=== PATIENT | female | born 1945 | race African-American/Black ===

== ENCOUNTER 2017-04-28 14:19 | Outpatient (CLI) | payer MEDICARE | END 2017-04-28 14:20 | disposition critical access hospital (66) | LOC: EMS 14:19 | PROVIDERS: ATTEND Surgery | DX: R55 Syncope and collapse (principal) | CPT/HCPCS: A0425; A0427 ==

== ENCOUNTER 2017-06-04 14:58 | Outpatient (CLI) | payer MEDICARE, OTHER ==
--- NOTE | 2017-06-05 14:58 | Ultrasound Report ---
EXAM: RENAL ULTRASOUND EXAM DATE: 06/04/2017 05:04 PM. CLINICAL HISTORY: LUPUS KIDNEY. RIGHT NEPHRECTOMY, apparently due to infection, not cancer, according to the patient. COMPARISON: None. TECHNIQUE: Real-time scanning was performed with static images obtained. FINDINGS: Right Kidney: Surgically absent. Left Kidney: 11 x 5.8 x 5.5 cm. Mildly echogenic kidney is nonspecific. No stones, contour-deforming masses, or hydronephrosis. There is a benign-appearing simple cyst at the upper pole measuring 1.4 x 1.3 x 1.7 cm. Bladder: Small left ureteral jet is seen. The prevoid bladder volume was 88 cc. The postvoid bladder volume was 8 cc. (Please note that the patient voided twice prior to this exam due to delay from othe r emergent exams performed before her study.) Other: None. Impression: 1. Mildly echogenic left kidney is nonspecific. This can be seen with chronic renal disease including lupus. No suspicious left renal masses are seen. 2. Status post right nephrectomy. [facility] Referring Provider Line: [phone] SITE ID: [id number]
== END 2017-06-04 14:59 | disposition home or self-care (01) ==
LOC: DI 14:58
PROVIDERS: ATTEND Internal Medicine Nephrology
DX: M32.9 Systemic lupus erythematosus, unspecified (principal); Z90.5 Acquired absence of kidney
CPT/HCPCS: 76770

== ENCOUNTER 2017-07-12 08:00 | Outpatient (CLI) | payer MEDICARE, OTHER ==
[2017-07-12 19:21] LABS: CALCIUM 9.2 mg/dL (8.5-10.3); CREATININE 1.1 mg/dL (0.4-1.0); PHOSPHORUS 4.1 mg/dL (2.5-4.6)
== END 2017-07-12 08:01 | disposition home or self-care (01) ==
LOC: LAB.WCP 08:00
PROVIDERS: ATTEND Internal Medicine Nephrology
DX: N05.9 Unspecified nephritic syndrome with unspecified morphologic changes (principal); E83.30 Disorder of phosphorus metabolism, unspecified; N25.81 Secondary hyperparathyroidism of renal origin
CPT/HCPCS: 36415; 80048; 83970; 84100

== ENCOUNTER 2017-11-14 09:33 | Outpatient (CLI) | payer MEDICARE, OTHER ==
[2017-11-14 12:43] LABS: BASOPHILS % (AUTO) 0.8 %; EOSINOPHILS # (AUTO) 0.1 10^3/uL (0.0-0.7); EOSINOPHILS % (AUTO) 1.9 %; HGB - HEMOGLOBIN 12.4 g/dL (12.0-16.0); LYMPHOCYTES # (AUTO) 1.1 10^3/uL (1.5-3.5); LYMPHOCYTES % (AUTO) 33.6 %; MEAN CORPUSCULAR HEMOGLOBIN 29.2 pg (27.0-31.0); MEAN CORPUSCULAR HGB CONC 33.5 g/dL (32.0-36.0); MEAN CORPUSCULAR VOLUME 87.2 fL (81.0-99.0); MEAN PLATELET VOLUME 10.8 fL (7.9-10.8); MONOCYTES # (AUTO) 0.4 10^3/uL (0.0-1.0); MONOCYTES % (AUTO) 11.5 %; NEUTROPHILS # (AUTO) 1.7 10^3/uL (1.5-6.6); NEUTROPHILS % (AUTO) 52.2 %; PLT - PLATELET COUNT 118 10^3/uL (130-450); RED BLOOD COUNT 4.24 10^6/uL (4.20-5.40); WHITE BLOOD COUNT 3.3 x10^3/uL (4.8-10.8)
[2017-11-14 12:57] LABS: ALBUMIN 3.8 g/dL (3.2-5.5); ALBUMIN/GLOBULIN RATIO 1.1 (1.0-2.2); ALKALINE PHOSPHATASE 72 IU/L (42-121); ALT ALANINE AMINOTRANSFERASE 25 IU/L (10-60); AST ASPARTATE AMINOTRANSFERASE 31 IU/L (10-42); BILIRUBIN,TOTAL 0.8 mg/dL (0.2-1.0); BUN - BLOOD UREA NITROGEN 13 mg/dL (6-20); CALCIUM 9.2 mg/dL (8.5-10.3); CARBON DIOXIDE - CO2 28 mmol/L (21-32); CHLORIDE 105 mmol/L (101-111); CREATININE 0.8 mg/dL (0.4-1.0); GFR - MDRD 85 (>89); GLUCOSE 79 mg/dL (70-100); SODIUM 140 mmol/L (135-145); TOTAL PROTEIN 7.4 g/dL (6.7-8.2)
== END 2017-11-14 09:34 | disposition home or self-care (01) ==
LOC: LAB.WCP 09:33
PROVIDERS: ATTEND Family Medicine
DX: N18.3 Chronic kidney disease, stage 3 (moderate) (principal); I10 Essential (primary) hypertension; D68.59 Other primary thrombophilia; M19.93 Secondary osteoarthritis, unspecified site
CPT/HCPCS: 36415; 80053; 84443; 85025

== ENCOUNTER 2017-12-12 10:34 | Outpatient (CLI) | payer MEDICARE, OTHER ==
[2017-12-12 13:52] LABS: CREATININE,URINE 133.3 mg/dL; PROTEIN/CREATININE RATIO,URINE 0.1 (<=0.2)
== END 2017-12-12 10:35 | disposition home or self-care (01) ==
LOC: LAB.WCP 10:34
PROVIDERS: ATTEND Family Medicine
DX: I12.9 Hypertensive chronic kidney disease with stage 1 through stage 4 chronic kidney disease, or unspecified chronic kidney disease (principal); N18.3 Chronic kidney disease, stage 3 (moderate)
CPT/HCPCS: 36415; 82570; 84156; 85651

== ENCOUNTER 2017-12-21 13:53 | Outpatient (CLI) | payer MEDICARE, OTHER ==
--- NOTE | 2017-12-30 14:10 | Mammography Report ---
Procedure Date: 12/21/2017 Accession Number: [id number] / [id number] Procedure: ROSY - Screening Mammo Dig Bilat CPT Code: FULL RESULT: EXAM: Screening Mammo Dig Bilat DATE: 12/21/2017 2:11 PM CLINICAL HISTORY: 72-year-old for screening TECHNIQUE: Bilateral CC and MLO views were obtained. COMPARISON: The patient reports having had previous mammograms in [place], but films currently cannot be located. If records in your office indicate where the examination was performed, would be happy to try to obtain it for direct comparison. Otherwise, this will serve as a new baseline. FINDINGS: The breasts demonstrate scattered fibroglandular densities bilaterally. Punctate, typically benign calcifications are present. No suspicious masses, clustered microcalcifications, or regions of architectural distortion are identified. IMPRESSION: Benign findings RECOMMENDATION: Routine annual screening unless otherwise clinically indicated. BIRADS CATEGORY 2: Benign findings STANDARD QUALIFYING STATEMENTS: 1. This examination was reviewed with the aid of Computer-Aided Detection (CAD). 2. A negative or benign imaging report should not delay biopsy if clinically suspicious findings are present. Consider surgical consultation if warrented. More than 5% of cancers are not identified by imaging. 3. Dense breasts may obscure an underlying neoplasm.
== END 2017-12-21 13:54 | disposition home or self-care (01) ==
LOC: DI 13:53
PROVIDERS: ATTEND Family Medicine
DX: Z12.31 Encounter for screening mammogram for malignant neoplasm of breast (principal)
CPT/HCPCS: 77067

== ENCOUNTER 2018-03-10 09:53 | Outpatient (CLI) | payer MEDICARE, OTHER ==
--- NOTE | 2018-03-10 14:11 | Ultrasound Report ---
Reason: POSTMENOPAUSAL BLEEDING Procedure Date: 03/10/2018 Accession Number: [id number] / [id number] Procedure: US - Pelvic w/Transvaginal CPT Code: FULL RESULT: EXAM: PELVIC ULTRASOUND EXAM DATE: 03/10/2018 12:15 PM. CLINICAL HISTORY: POSTMENOPAUSAL BLEEDING. COMPARISON: None. TECHNIQUE: Realtime transabdominal pelvic scan performed to identify the uterus and adnexa and as an overview of other pelvic structures, followed by transvaginal scan to provide greater detail of the uterus and adnexa, with static image documentation. FINDINGS: Uterus: 8.5 x 5.4 x 3.9 cm, volume 94 cc. Anteverted position. Heterogeneous echotexture with multiple calcifications. Masses: Multiple fibroids largest posterior left intramural 1.8 x 2 x 1.3 cm and pedunculated from the anterior aspect of the cervix 1.7 x 2.1 x 1.7 cm.. Endometrium: 3 mm. Suboptimal evaluation due to the fibroids. Cervix: Unremarkable. Right and left Ovary: Not seen. No adnexal masses. Free Fluid: None. Other: Incidental note made of multiple bladder diverticula. IMPRESSION: Myomatous changes of the uterus without suspicious findings. Multiple urinary bladder diverticula. [facility]
== END 2018-03-10 09:54 | disposition home or self-care (01) ==
LOC: DI 09:53
PROVIDERS: ATTEND Obstetrics & Gynecology
DX: D25.1 Intramural leiomyoma of uterus (principal); D25.9 Leiomyoma of uterus, unspecified; N32.3 Diverticulum of bladder
CPT/HCPCS: 76830; 76856

== ENCOUNTER 2018-04-07 15:14 | Outpatient (CLI) | payer MEDICARE, OTHER ==
[2018-04-07 19:23] LABS: INR 3.6 (0.8-1.2); PT - PROTHROMBIN TIME 38.4 secs (9.9-12.6)
== END 2018-04-07 15:15 | disposition home or self-care (01) ==
LOC: LAB.WCP 15:14
PROVIDERS: ATTEND Family Medicine
DX: Z79.01 Long term (current) use of anticoagulants (principal)
CPT/HCPCS: 36415; 85610

== ENCOUNTER 2018-06-09 08:00 | Outpatient (CLI) | payer MEDICARE, OTHER ==
[2018-06-09 13:15] LABS: BASOPHILS % (AUTO) 0.8 %; EOSINOPHILS # (AUTO) 0.1 10^3/uL (0.0-0.7); EOSINOPHILS % (AUTO) 3.3 %; HGB - HEMOGLOBIN 11.2 g/dL (12.0-16.0); LYMPHOCYTES # (AUTO) 1.2 10^3/uL (1.5-3.5); LYMPHOCYTES % (AUTO) 33.4 %; MEAN CORPUSCULAR HEMOGLOBIN 29.3 pg (27.0-31.0); MEAN CORPUSCULAR HGB CONC 34.2 g/dL (32.0-36.0); MEAN CORPUSCULAR VOLUME 85.5 fL (81.0-99.0); MEAN PLATELET VOLUME 11.9 fL (7.9-10.8); MONOCYTES # (AUTO) 0.5 10^3/uL (0.0-1.0); MONOCYTES % (AUTO) 14.2 %; NEUTROPHILS # (AUTO) 1.7 10^3/uL (1.5-6.6); NEUTROPHILS % (AUTO) 48.3 %; PLT - PLATELET COUNT 107 10^3/uL (130-450); RED BLOOD COUNT 3.81 10^6/uL (4.20-5.40); RED CELL DISTRIBUTION WIDTH 16.1 % (12.0-15.0); WHITE BLOOD COUNT 3.6 x10^3/uL (4.8-10.8)
[2018-06-09 13:21] LABS: ALBUMIN 3.8 g/dL (3.2-5.5); ALBUMIN/GLOBULIN RATIO 0.9 (1.0-2.2); ALKALINE PHOSPHATASE 88 IU/L (42-121); ALT ALANINE AMINOTRANSFERASE 25 IU/L (10-60); AST ASPARTATE AMINOTRANSFERASE 33 IU/L (10-42); BILIRUBIN,TOTAL 0.5 mg/dL (0.2-1.0); BUN - BLOOD UREA NITROGEN 14 mg/dL (6-20); CALCIUM 9.4 mg/dL (8.5-10.3); CARBON DIOXIDE - CO2 25 mmol/L (21-32); CHLORIDE 105 mmol/L (101-111); CREATININE 0.8 mg/dL (0.4-1.0); GFR - MDRD 85 (>89); GLUCOSE 73 mg/dL (70-100); SODIUM 139 mmol/L (135-145); TOTAL PROTEIN 7.9 g/dL (6.7-8.2)
[2018-06-09 13:22] LABS: CRP - C-REACTIVE PROTEIN < 1.0 mg/dL (0-1.0)
[2018-06-09 14:15] LABS: PLATELET ESTIMATE, MANUAL DECREASED (<130,000) (NORMAL); PLATELET MORPHOLOGY RARE GIANT PLATELETS (NORMAL)
== END 2018-06-09 23:59 | disposition home or self-care (01) ==
LOC: LAB.WCP 08:00
PROVIDERS: ATTEND Family Medicine
DX: M17.0 Bilateral primary osteoarthritis of knee (principal); E78.5 Hyperlipidemia, unspecified; L93.0 Discoid lupus erythematosus; N18.3 Chronic kidney disease, stage 3 (moderate)
CPT/HCPCS: 36415; 80053; 84443; 85025; 85651; 86140

== ENCOUNTER 2018-08-17 14:00 | Outpatient (CLI) | payer MEDICARE, OTHER | END 2018-08-17 23:59 | disposition home or self-care (01) | LOC: LAB.WCP 14:00 | PROVIDERS: ATTEND Family Medicine | DX: M19.93 Secondary osteoarthritis, unspecified site (principal) | CPT/HCPCS: 36415; 85651 ==

== ENCOUNTER 2018-09-04 08:00 | Outpatient (CLI) | payer MEDICARE, OTHER | END 2018-09-04 23:59 | disposition home or self-care (01) | LOC: LAB.WCP 08:00 | PROVIDERS: ATTEND Physician Assistant Medical | DX: Z79.01 Long term (current) use of anticoagulants (principal); Z86.711 Personal history of pulmonary embolism ==

== ENCOUNTER 2018-09-11 15:36 | Outpatient (CLI) | payer MEDICARE, OTHER | END 2018-09-11 23:59 | disposition home or self-care (01) | LOC: LAB.WCP 15:36 | PROVIDERS: ATTEND Family Medicine | DX: M19.93 Secondary osteoarthritis, unspecified site (principal); Z86.711 Personal history of pulmonary embolism; Z79.01 Long term (current) use of anticoagulants; D68.59 Other primary thrombophilia | CPT/HCPCS: 36415; 85651 ==

== ENCOUNTER 2018-09-18 03:10 | Outpatient (CLI) | payer MEDICARE, OTHER | END 2018-09-18 23:59 | LOC: LAB.WCP 03:10 | PROVIDERS: ATTEND Family Medicine | DX: M19.93 Secondary osteoarthritis, unspecified site (principal) | CPT/HCPCS: 36415; 85651 ==

== ENCOUNTER 2018-10-02 08:00 | Outpatient (CLI) | payer MEDICARE, OTHER | END 2018-10-02 23:59 | disposition home or self-care (01) | LOC: LAB.WCP 08:00 | PROVIDERS: ATTEND Physician Assistant Medical | DX: D68.59 Other primary thrombophilia (principal); Z79.01 Long term (current) use of anticoagulants | CPT/HCPCS: 81025 ==

== ENCOUNTER 2018-10-09 08:00 | Outpatient (CLI) | payer MEDICARE, OTHER | END 2018-10-09 23:59 | disposition home or self-care (01) | LOC: LAB.WCP 08:00 | PROVIDERS: ATTEND Family Medicine | DX: D68.59 Other primary thrombophilia (principal); Z86.711 Personal history of pulmonary embolism; Z79.01 Long term (current) use of anticoagulants ==

== ENCOUNTER 2018-10-16 08:00 | Outpatient (CLI) | payer MEDICARE, OTHER | END 2018-10-16 23:59 | disposition home or self-care (01) | LOC: LAB.WCP 08:00 | PROVIDERS: ATTEND Family Medicine | DX: D68.59 Other primary thrombophilia (principal); Z79.01 Long term (current) use of anticoagulants ==

== ENCOUNTER 2018-10-30 08:00 | Outpatient (CLI) | payer MEDICARE, OTHER ==
[2018-10-30 18:37] LABS: BASOPHILS % (AUTO) 0.8 %; EOSINOPHILS % (AUTO) 0.6 %; LYMPHOCYTES # (AUTO) 1.2 10^3/uL (1.5-3.5); LYMPHOCYTES % (AUTO) 19.5 %; MEAN CORPUSCULAR HEMOGLOBIN 28.1 pg (27.0-31.0); MEAN CORPUSCULAR HGB CONC 31.6 g/dL (32.0-36.0); MEAN CORPUSCULAR VOLUME 88.7 fL (81.0-99.0); MEAN PLATELET VOLUME 12.1 fL (7.9-10.8); MONOCYTES # (AUTO) 0.5 10^3/uL (0.0-1.0); MONOCYTES % (AUTO) 8.5 %; NEUTROPHILS # (AUTO) 4.3 10^3/uL (1.5-6.6); NEUTROPHILS % (AUTO) 70.6 %; PLT - PLATELET COUNT 200 10^3/uL (130-450); RED BLOOD COUNT 4.65 10^6/uL (4.20-5.40); RED CELL DISTRIBUTION WIDTH 16.5 % (12.0-15.0); WHITE BLOOD COUNT 6.1 x10^3/uL (4.8-10.8)
[2018-10-30 19:02] LABS: ALBUMIN 3.8 g/dL (3.2-5.5); ALBUMIN/GLOBULIN RATIO 0.9 (1.0-2.2); BILIRUBIN,TOTAL 0.6 mg/dL (0.2-1.0); CALCIUM 9.2 mg/dL (8.5-10.3); TOTAL PROTEIN 7.9 g/dL (6.7-8.2)
== END 2018-10-30 23:59 | disposition home or self-care (01) ==
LOC: LAB.WCP 08:00
PROVIDERS: ATTEND Physician Assistant Medical
DX: I10 Essential (primary) hypertension (principal); M19.93 Secondary osteoarthritis, unspecified site
CPT/HCPCS: 36415; 80053; 85025; 85651

== ENCOUNTER 2018-11-13 08:00 | Outpatient (CLI) | payer MEDICARE, OTHER | END 2018-11-13 23:59 | disposition home or self-care (01) | LOC: LAB.WCP 08:00 | PROVIDERS: ATTEND Family Medicine | DX: D68.59 Other primary thrombophilia (principal); Z79.01 Long term (current) use of anticoagulants ==

== ENCOUNTER 2018-11-28 08:00 | Outpatient (CLI) | payer MEDICARE, OTHER | END 2018-11-28 23:59 | disposition home or self-care (01) | LOC: LAB.WCP 08:00 | PROVIDERS: ATTEND Family Medicine | DX: D68.59 Other primary thrombophilia (principal); Z79.01 Long term (current) use of anticoagulants ==

== ENCOUNTER 2018-12-12 08:00 | Outpatient (CLI) | payer MEDICARE, OTHER | END 2018-12-12 08:01 | disposition home or self-care (01) | LOC: LAB.WCP 08:00 | PROVIDERS: ATTEND Family Medicine | DX: D68.59 Other primary thrombophilia (principal); Z79.01 Long term (current) use of anticoagulants ==

== ENCOUNTER 2019-01-09 08:00 | Outpatient (CLI) | payer MEDICARE, OTHER | END 2019-01-09 08:01 | disposition home or self-care (01) | LOC: LAB.WCP 08:00 | PROVIDERS: ATTEND Physician Assistant Medical | DX: D68.59 Other primary thrombophilia (principal); Z79.01 Long term (current) use of anticoagulants ==

== ENCOUNTER 2019-01-16 08:00 | Outpatient (CLI) | payer MEDICARE, OTHER | END 2019-01-16 08:01 | disposition home or self-care (01) | LOC: LAB.WCP 08:00 | PROVIDERS: ATTEND Family Medicine | DX: D68.59 Other primary thrombophilia (principal); Z79.01 Long term (current) use of anticoagulants ==

== ENCOUNTER 2019-01-23 12:16 | Outpatient (CLI) | payer MEDICARE, OTHER ==
[2019-01-23 18:43] LABS: BASOPHILS % (AUTO) 0.4 %; HGB - HEMOGLOBIN 12.6 g/dL (12.0-16.0); LYMPHOCYTES # (AUTO) 1.2 10^3/uL (1.5-3.5); LYMPHOCYTES % (AUTO) 24.9 %; MEAN CORPUSCULAR HGB CONC 31.3 g/dL (32.0-36.0); MEAN CORPUSCULAR VOLUME 92.6 fL (81.0-99.0); MEAN PLATELET VOLUME 12.3 fL (7.9-10.8); MONOCYTES # (AUTO) 0.4 10^3/uL (0.0-1.0); MONOCYTES % (AUTO) 8.1 %; NEUTROPHILS # (AUTO) 3.1 10^3/uL (1.5-6.6); PLT - PLATELET COUNT 192 10^3/uL (130-450); RED BLOOD COUNT 4.35 10^6/uL (4.20-5.40); RED CELL DISTRIBUTION WIDTH 14.2 % (12.0-15.0); WHITE BLOOD COUNT 4.7 x10^3/uL (4.8-10.8)
[2019-01-23 20:33] LABS: BUN - BLOOD UREA NITROGEN 17 mg/dL (6-20); CARBON DIOXIDE - CO2 25 mmol/L (21-32); CHLORIDE 106 mmol/L (101-111); SODIUM 143 mmol/L (135-145)
[2019-01-23 20:34] LABS: ALBUMIN 3.9 g/dL (3.2-5.5); ALBUMIN/GLOBULIN RATIO 1.1 (1.0-2.2); ALKALINE PHOSPHATASE 76 IU/L (42-121); ALT ALANINE AMINOTRANSFERASE 28 IU/L (10-60); AST ASPARTATE AMINOTRANSFERASE 35 IU/L (10-42); BILIRUBIN,TOTAL 0.6 mg/dL (0.2-1.0); CALCIUM 9.3 mg/dL (8.5-10.3); GFR - MDRD 66 (>89); GLUCOSE 81 mg/dL (70-100); TOTAL PROTEIN 7.5 g/dL (6.7-8.2)
[2019-01-23 20:35] LABS: CHOL/HDL RATIO 2.8 (<4.4); CHOLESTEROL 179 mg/dL; HDL CHOLESTEROL 64 mg/dL; LDL CHOLESTEROL,CALCULATED 105 mg/dL; LDL/HDL RATIO 1.6 (<4.4); VLDL CHOLESTEROL 10 mg/dL
== END 2019-01-23 23:59 | disposition home or self-care (01) ==
LOC: LAB.WCP 12:16
PROVIDERS: ATTEND Family Medicine
DX: M17.9 Osteoarthritis of knee, unspecified (principal); E78.5 Hyperlipidemia, unspecified; M19.93 Secondary osteoarthritis, unspecified site; I10 Essential (primary) hypertension; D68.59 Other primary thrombophilia; Z79.01 Long term (current) use of anticoagulants
CPT/HCPCS: 36415; 80053; 80061; 83721; 84443; 85025; 85651

== ENCOUNTER 2019-02-13 08:00 | Outpatient (CLI) | payer MEDICARE, OTHER | END 2019-02-13 23:59 | disposition home or self-care (01) | LOC: LAB.WCP 08:00 | PROVIDERS: ATTEND Family Medicine | DX: D68.59 Other primary thrombophilia (principal); Z79.01 Long term (current) use of anticoagulants ==

== ENCOUNTER 2019-02-20 08:00 | Outpatient (CLI) | payer MEDICARE, OTHER | END 2019-02-20 23:59 | disposition home or self-care (01) | LOC: LAB.WCP 08:00 | PROVIDERS: ATTEND Family Medicine | DX: D68.59 Other primary thrombophilia (principal); Z79.01 Long term (current) use of anticoagulants ==

== ENCOUNTER 2019-03-06 08:00 | Outpatient (CLI) | payer MEDICARE, OTHER | END 2019-03-06 23:59 | disposition home or self-care (01) | LOC: LAB.WCP 08:00 | PROVIDERS: ATTEND Family Medicine | DX: Z86.711 Personal history of pulmonary embolism (principal); Z79.01 Long term (current) use of anticoagulants ==

== ENCOUNTER 2019-03-19 08:00 | Outpatient (CLI) | payer MEDICARE, OTHER ==
[2019-03-19 18:43] LABS: ALBUMIN 3.6 g/dL (3.2-5.5); BILIRUBIN,TOTAL 0.6 mg/dL (0.2-1.0); CALCIUM 9.3 mg/dL (8.5-10.3); TOTAL PROTEIN 7.3 g/dL (6.7-8.2)
[2019-03-19 18:45] LABS: CREATININE,URINE 49.2 mg/dL
[2019-03-19 18:46] LABS: MICROALBUM/CREATININE RATIO,UR 152.4 ug/mg (<30.0); MICROALBUMIN,URINE 7.5 mg/dL (0-300.0)
[2019-03-19 19:25] LABS: CREATININE 8.9 mg/dL (0.4-1.0)
== END 2019-03-19 23:59 | disposition home or self-care (01) ==
LOC: LAB.WCP 08:00
PROVIDERS: ATTEND Family Medicine
DX: N18.3 Chronic kidney disease, stage 3 (moderate) (principal)
CPT/HCPCS: 36415; 80053; 82043; 82570

== ENCOUNTER 2019-03-19 20:26 | Outpatient (CLI) | payer MEDICARE, OTHER ==
[2019-03-19 21:09] LABS: ALBUMIN 3.6 g/dL (3.2-5.5); BILIRUBIN,TOTAL 0.8 mg/dL (0.2-1.0); CALCIUM 8.9 mg/dL (8.5-10.3); TOTAL PROTEIN 7.3 g/dL (6.7-8.2)
[2019-03-19 21:20] LABS: CREATININE 9.2 mg/dL (0.4-1.0)
== END 2019-03-19 20:27 | disposition home or self-care (01) ==
LOC: LAB 20:26
PROVIDERS: ATTEND Family Medicine
DX: N18.3 Chronic kidney disease, stage 3 (moderate) (principal)
CPT/HCPCS: 36415; 80053; 82043; 82570

== ENCOUNTER 2019-03-19 21:26 | Emergency (ER) | payer MEDICARE, OTHER ==
--- NOTE | 2019-03-19 21:39 | ED Physician Documentation ---
History of Present Illness - Stated complaint Stated Complaint: ABNORMAL LABS - History obtained from History obtained from: Patient - History of Present Illness Timing: Today Pain level now: 0 Improved by: no ameliorating factors Worsened by: exertion (fatigue, weakness) Associated symptoms: "indigestion" (per patient) with eructation and epigastric discomfort, episodic - Additonal information Additional information: patient saw PMD earlier today due to feeling generalized weakness, fatigue x 3 d ays. Daughter (in ED at bedside) says she has also noted patient exhibiting some mild confusion over past few days. Patient also says she has had "stomach pain like bowel blocked up" over past 1 week, intermittent but not currently having this pain. She also says she was started on oxybutinin 2 months ago for urinary frequency, and that this was changed to detrol approximately 1 month ago, with the detrol dose doubled recently. Patient had right nephrectomy approximately 1.5 years ago. Patient's outpatient blood work from today revealed markedly elevated bun/creatinine (had previously been normal) as well as hyperkalemia. She had these repeated tonight and results confirmed marked elevation in bun/creatinine and mild hyperkalemia, and thus she checks into ED as advised by PMD. Review of Systems Constitutional: reports: Fatigue. 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 denies: Dyspnea, Wheezing GI: denies: Abdominal Pain, Nausea, Vomiting, Constipation, Diarrhea : denies: Dysuria, Frequency, Hematuria Skin: reports: Reviewed and negative Musculoskeletal: reports: Reviewed and negative Neurologic: reports: Generalized weakness. 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 Derm: Skin grafts (RLE) - Present Medications Home Medications: Ambulatory Orders Medication Instructions Recorded Confirmed Atorvastatin Calcium 10 mg PO 2100 04/28/17 03/19/19 Ergocalciferol [Vitamin D2] 50,000 unit PO UD 04/28/17 03/19/19 Folic Acid 1 mg PO DAILY 04/28/17 03/19/19 Hydrocodone/Acetaminophen [Vicodin 1 tab PO TID PRN 04/28/17 03/19/19 Es 7.5-300 mg Tablet] Hydroxychloroquine [Plaquenil] 200 mg PO DAILY 04/28/17 03/19/19 Ibandronate Sodium [Boniva] 150 mg PO UD 04/28/17 03/19/19 Prednisone 5 mg PO DAILY 04/28/17 03/19/19 Warfarin [Coumadin] 2.5 mg PO SUTUWETHSA 04/28/17 03/19/19 diltiaZEM CD [Cardizem Cd] 120 mg PO DAILY 04/28/17 03/19/19 Methocarbamol 500 mg PO BID #30 tablet 04/29/17 03/19/19 Folic Acid/Vit Bcomp,C [Korin-Martine 1 tab PO DAILY 03/19/19 03/19/19 Tablet] Tolterodine Tartrate 2 mg PO DAILY 03/19/19 03/19/19 - Allergies Allergies/Adverse Reactions: Allergies Allergy/AdvReac Type Severity Reaction Status Date / Time No Known Drug Allergies Allergy Verified 03/19/19 21:40 - Social History Does the pt smoke?: No Smoking Status: Never smoker Does the pt drink ETOH?: No Does the pt have substance abuse?: No - POLST Patient has POLST: No POLST Status: Full Code PD ED PE NORMAL - Vitals Vital signs reviewed: Yes - General General: Alert and oriented X 3, No acute distress, Well developed/nourished - HEENT HEENT: Moist mucous membranes - Neck Neck: Supple, no meningeal sign - Cardiac Cardiac: RRR - Respiratory Respiratory: No respiratory distress, Clear bilaterally - Abdomen Abdomen: Soft, Non tender, Non distended - Back Back: No CVA TTP - Derm Derm: Normal color, Warm and dry - Extremities Extremities: No edema PD ED PE EXPANDED - Cardiac Cardiac: Murmur Present (2/6 BOB right 2nd ICS) Results - Vitals Vitals: Vital Signs - 24 hr 03/19/19 03/19/19 03/20/19 21:32 23:40 02:01 Temperature 36.6 C Heart Rate 68 88 84 Respiratory 18 21 26 H Rate Blood Pressure 173/93 H 163/62 H 185/76 H O2 Saturation 100 100 100 03/20/19 03:31 Temperature Heart Rate 83 Respiratory 24 Rate Blood Pressure 145/82 H O2 Saturation 99 Oxygen O2 Source Room air - EKG (time done) No standard instances Rate: Rate (enter#) (93) Rhythm: Atrial fibrillation [place]: LAD Ischemia: Normal ST segments Computer interpretation: Disagree with computer (no significant ST abnormalities ) - Labs Labs: Laboratory Tests 03/19/19 03/19/19 03/19/19 22:23 22:23 22:23 WBC 8.4 RBC 4.01 L Hgb 11.5 L Hct 34.6 L MCV 86.3 MCH 28.7 MCHC 33.2 RDW 12.9 Plt Count 213 MPV 10.1 Neut # (Auto) 5.6 Lymph # (Auto) 1.2 L [place] # (Auto) 1.4 H Eos # (Auto) 0.0 Baso # (Auto) 0.0 Absolute Nucleated RBC 0.00 Nucleated RBC % 0.0 PT 59.8 H INR 5.4 H* APTT 47.6 H B-Natriuretic Peptide 495 H PD MEDICAL DECISION MAKING - ED course Complexity details: reviewed old records, reviewed results, re-evaluated patient, considered differential, d/w patient, d/w family ED course: Patient requires higher level of care than can be provided at [facility], given ARF with solitary kidney. [facility] and [facility] [place] were contacted but neither has any beds available. D/W Dr. Odonnell at [facility]; he accepts patient for transfer and recommends sodium bicarbinate, kayexalate, and IV calcium. These medications were given although patient promptly vomited the dose of kayexalate. After Dr. Odonnell accepted patient, transfer center informed me that they did not anticipate bed availability for several hours, until morning when patients can be discharged. Based on this, I called other hospitals to seek more expeditious transfer. I d/w [facility] transfer center, but they are boarding; they are not refusing transfer but likely will not expedite the process compared to waiting for [facility] ([place], [place]) bed availability. I then d/w Dr. Lawrence at [facility]. She accepts patient for transfer, recommends retry PO kayexalate, and also recommends insulin/dextrose; these medications were given and the kayexelate was tolerated. Patient remained stable during ED stay and only c/o generalized weakness Departure - Departure Disposition: 02 Transfer Acute Care Hosp Clinical Impression: Hyperkalemia, Acute renal failure Condition: Stable Discharge Date/Time: 03/20/19 05:00
[2019-03-19 22:28] LABS: BASOPHILS % (AUTO) 0.2 %; EOSINOPHILS % (AUTO) 0.5 %; HGB - HEMOGLOBIN 11.5 g/dL (12.0-16.0); LYMPHOCYTES # (AUTO) 1.2 10^3/uL (1.5-3.5); LYMPHOCYTES % (AUTO) 14.7 %; MEAN CORPUSCULAR HEMOGLOBIN 28.7 pg (27.0-31.0); MEAN CORPUSCULAR HGB CONC 33.2 g/dL (32.0-36.0); MEAN CORPUSCULAR VOLUME 86.3 fL (81.0-99.0); MEAN PLATELET VOLUME 10.1 fL (7.9-10.8); MONOCYTES # (AUTO) 1.4 10^3/uL (0.0-1.0); MONOCYTES % (AUTO) 16.6 %; NEUTROPHILS # (AUTO) 5.6 10^3/uL (1.5-6.6); NEUTROPHILS % (AUTO) 67.3 %; PLT - PLATELET COUNT 213 10^3/uL (130-450); RED BLOOD COUNT 4.01 10^6/uL (4.20-5.40); RED CELL DISTRIBUTION WIDTH 12.9 % (12.0-15.0); WHITE BLOOD COUNT 8.4 x10^3/uL (4.8-10.8)
[2019-03-19 22:33] LABS: PT - PROTHROMBIN TIME 59.8 secs (9.9-12.6)
[2019-03-19 22:45] LABS: PARTIAL THROMBOPLASTIN TIME 47.6 secs (24.9-33.3)
[2019-03-19 22:48] LABS: INR 5.4 (0.8-1.2)
[2019-03-20] MEDS ORDERED: SODIUM BICARBONATE 150 MEQ in DEXTROSE 5% 1,000 ML IV STA (01:12)
[2019-03-20] MEDS ORDERED: SODIUM POLYSTYRENE SULFONATE 15 GM/60 ML BOTTLE PO STA ×2 (01:13→03:07)
[2019-03-20] MEDS ORDERED: CALCIUM GLUCONATE 1,000 MG in SODIUM CHLORIDE 0.9% 50 ML IV STA (01:15)
[2019-03-20] MEDS ORDERED: DEXTROSE 5% 1,000 ML IV ONE (01:28)
[2019-03-20] MEDS ORDERED: SODIUM BICARBONATE ABBOJECT 50 MEQ/50 ML SYRINGE ONE (01:59)
[2019-03-20] MEDS ORDERED: ONDANSETRON 4 MG/2 ML VIAL IVP STA (03:06)
[2019-03-20] MEDS ORDERED: INSULIN REGULAR HUMAN 100 UNIT/1 ML 10 ML MDV IVP STA (03:08)
[2019-03-20] MEDS ORDERED: DEXTROSE 50% ABBOJECT 25 GM/50 ML SYRINGE IVP STA (03:10)
[2019-03-20 03:32] VITALS: BP 145/82
[2019-03-20] MEDS ORDERED: DEXTROSE 50% ABBOJECT 25 GM/50 ML SYRINGE ONE (03:51)
== END 2019-03-20 05:00 | disposition short-term general hospital (02) ==
LOC: ED 21:26
DX: N17.9 Acute kidney failure, unspecified (principal); E87.5 Hyperkalemia; R11.10 Vomiting, unspecified; I12.9 Hypertensive chronic kidney disease with stage 1 through stage 4 chronic kidney disease, or unspecified chronic kidney disease; N18.3 Chronic kidney disease, stage 3 (moderate); Z90.5 Acquired absence of kidney; I48.91 Unspecified atrial fibrillation; Z86.711 Personal history of pulmonary embolism; Z79.01 Long term (current) use of anticoagulants; M32.9 Systemic lupus erythematosus, unspecified; R05 Cough; R53.83 Other fatigue; R10.13 Epigastric pain
CPT/HCPCS: 36415; 80053; 82043; 82570; 83880; 85025; 85610; 85730; 93005; 96365; 96375; 99285; A9270; J1815; J7040

== ENCOUNTER 2019-03-26 12:40 | Outpatient (CLI) | payer MEDICARE, OTHER ==
[2019-03-26 19:09] LABS: BASOPHILS % (AUTO) 0.5 %; EOSINOPHILS # (AUTO) 0.1 10^3/uL (0.0-0.7); EOSINOPHILS % (AUTO) 1.8 %; HGB - HEMOGLOBIN 11.1 g/dL (12.0-16.0); LYMPHOCYTES % (AUTO) 17.5 %; MEAN CORPUSCULAR HEMOGLOBIN 28.5 pg (27.0-31.0); MEAN CORPUSCULAR HGB CONC 30.2 g/dL (32.0-36.0); MEAN CORPUSCULAR VOLUME 94.3 fL (81.0-99.0); MEAN PLATELET VOLUME 12.3 fL (7.9-10.8); MONOCYTES # (AUTO) 0.9 10^3/uL (0.0-1.0); MONOCYTES % (AUTO) 15.2 %; NEUTROPHILS # (AUTO) 3.5 10^3/uL (1.5-6.6); NEUTROPHILS % (AUTO) 61.3 %; PLT - PLATELET COUNT 249 10^3/uL (130-450); RED BLOOD COUNT 3.89 10^6/uL (4.20-5.40); RED CELL DISTRIBUTION WIDTH 13.9 % (12.0-15.0); WHITE BLOOD COUNT 5.7 x10^3/uL (4.8-10.8)
[2019-03-26 19:40] LABS: ALBUMIN 3.4 g/dL (3.2-5.5); ALBUMIN/GLOBULIN RATIO 0.9 (1.0-2.2); BILIRUBIN,TOTAL 0.3 mg/dL (0.2-1.0); CALCIUM 9.1 mg/dL (8.5-10.3); CREATININE 1.2 mg/dL (0.4-1.0); TOTAL PROTEIN 7.3 g/dL (6.7-8.2)
== END 2019-03-26 23:59 | disposition home or self-care (01) ==
LOC: LAB.WCP 12:40
PROVIDERS: ATTEND Physician Assistant Medical
DX: E87.5 Hyperkalemia (principal); N17.9 Acute kidney failure, unspecified; I10 Essential (primary) hypertension; Z79.01 Long term (current) use of anticoagulants; Z86.711 Personal history of pulmonary embolism; D68.59 Other primary thrombophilia
CPT/HCPCS: 36415; 80053; 85025

== ENCOUNTER 2019-04-02 08:00 | Outpatient (CLI) | payer MEDICARE, OTHER | END 2019-04-02 23:59 | disposition home or self-care (01) | LOC: LAB.WCP 08:00 | PROVIDERS: ATTEND Physician Assistant Medical | DX: Z79.01 Long term (current) use of anticoagulants (principal); D68.59 Other primary thrombophilia ==

== ENCOUNTER 2019-04-09 08:00 | Outpatient (CLI) | payer MEDICARE, OTHER | END 2019-04-11 23:59 | disposition home or self-care (01) | LOC: LAB.WCP 08:00 | PROVIDERS: ATTEND Physician Assistant Medical | DX: D68.59 Other primary thrombophilia (principal); Z79.01 Long term (current) use of anticoagulants ==

== ENCOUNTER 2019-04-11 08:00 | Outpatient (CLI) | payer MEDICARE, OTHER ==
[2019-04-11 12:24] LABS: ALBUMIN 3.6 g/dL (3.2-5.5); BILIRUBIN,TOTAL 0.8 mg/dL (0.2-1.0); CREATININE 1.3 mg/dL (0.4-1.0); TOTAL PROTEIN 7.2 g/dL (6.7-8.2)
[2019-04-11 12:31] LABS: BASOPHILS % (AUTO) 0.7 %; EOSINOPHILS # (AUTO) 0.1 10^3/uL (0.0-0.7); EOSINOPHILS % (AUTO) 1.8 %; HGB - HEMOGLOBIN 10.6 g/dL (12.0-16.0); LYMPHOCYTES # (AUTO) 1.2 10^3/uL (1.5-3.5); LYMPHOCYTES % (AUTO) 22.6 %; MEAN CORPUSCULAR HGB CONC 32.1 g/dL (32.0-36.0); MEAN CORPUSCULAR VOLUME 93.5 fL (81.0-99.0); MEAN PLATELET VOLUME 11.8 fL (7.9-10.8); MONOCYTES # (AUTO) 0.7 10^3/uL (0.0-1.0); MONOCYTES % (AUTO) 11.9 %; NEUTROPHILS # (AUTO) 3.4 10^3/uL (1.5-6.6); NEUTROPHILS % (AUTO) 62.3 %; PLT - PLATELET COUNT 208 10^3/uL (130-450); RED BLOOD COUNT 3.53 10^6/uL (4.20-5.40); RED CELL DISTRIBUTION WIDTH 13.8 % (12.0-15.0); WHITE BLOOD COUNT 5.5 x10^3/uL (4.8-10.8)
== END 2019-04-11 23:59 | disposition home or self-care (01) ==
LOC: LAB.WCP 08:00
PROVIDERS: ATTEND Family Medicine
DX: N17.9 Acute kidney failure, unspecified (principal); E87.5 Hyperkalemia
CPT/HCPCS: 36415; 80053; 85025

== ENCOUNTER 2019-04-11 15:09 | Outpatient (CLI) | payer MEDICARE, OTHER ==
--- NOTE | 2019-04-12 17:28 | Ultrasound Report ---
Reason: CHRONIC KIDNEY DISEASE STAGE III Procedure Date: 04/11/2019 Accession Number: [id number] / [id number] Procedure: US - Retroperitoneal CPT Code: FULL RESULT: EXAM: RENAL ULTRASOUND EXAM DATE: 04/11/2019 03:25 PM. CLINICAL HISTORY: CHRONIC KIDNEY DISEASE STAGE III. Prior right nephrectomy. Left ureteral stent placed 2 weeks ago. History of fibroids. COMPARISON: RETROPERITONEAL 06/04/2017 5:03 PM PELVIC W/TRANSVAGINAL 03/10/2018 11:17 AM. TECHNIQUE: Real-time scanning was performed with static images obtained. FINDINGS: Right Kidney: Surgically absent. Left Kidney: 12.3 x 7.6 x 6.5 cm. Moderate hydronephrosis. Left ureteral stent noted. Bladder: Left ureteral jet seen. The prevoid bladder volume was 152 cc. The postvoid bladder volume was 23 cc. Multiple images, including images 4 and 5 raise concern for a 2 x 1.9 cm right posterior bladder mass. Other: None. IMPRESSION: 1. Prior right nephrectomy. 2. Moderate left hydronephrosis. A left ureteral stent is seen. 3. Potential 2 cm right posterior urinary bladder mass. Recommend correlation with cystoscopy to exclude neoplasm. [facility]
== END 2019-04-11 15:10 | disposition home or self-care (01) ==
LOC: DI 15:09
PROVIDERS: ATTEND Family Medicine
DX: N18.3 Chronic kidney disease, stage 3 (moderate) (principal); N13.30 Unspecified hydronephrosis; Z90.5 Acquired absence of kidney; N17.9 Acute kidney failure, unspecified; E87.5 Hyperkalemia
CPT/HCPCS: 36415; 76770; 80053; 85025

== ENCOUNTER 2019-04-18 08:00 | Outpatient (CLI) | payer MEDICARE, OTHER ==
[2019-04-18 19:10] LABS: BILIRUBIN,URINE NEGATIVE (NEGATIVE); GLUCOSE, URINE (UA) NEGATIVE (NEGATIVE); KETONES,URINE (UA) NEGATIVE (NEGATIVE); LEUKOCYTE ESTERASE, URINE SMALL (NEGATIVE); NITRITE,URINE NEGATIVE (NEGATIVE); OCCULT BLOOD,URINE LARGE (NEGATIVE); PH,URINE 5.5 PH (5.0-7.5); PROTEIN,URINE 100 mg/dL (NEGATIVE); UROBILINOGEN,URINE 0.2 (NORMAL) E.U./dL (NORMAL)
[2019-04-18 19:12] LABS: CLARITY,URINE CLOUDY (CLEAR)
[2019-04-18 19:33] LABS: BACTERIA,URINE Few /HPF (None Seen); RBC,URINE TNTC /HPF (0-5); SQUAMOUS EPITHELIAL CELL,UR FEW Squamous (<= Few)
[2019-04-18 19:44] LABS: CREATININE 1.3 mg/dL (0.4-1.0); GFR - MDRD 49 (>89)
[2019-04-18 19:47] LABS: CRP - C-REACTIVE PROTEIN < 1.0 mg/dL (0-1.0)
[2019-04-18 19:48] LABS: PROTEIN/CREATININE RATIO,URINE 1.5 (<=0.2)
[2019-04-20 08:26] LABS: COMPLEMENT COMPONENT C3C 113 mg/dL (83-193)
[2019-04-20 11:14] LABS: COMPLEMENT COMPONENT C4C 11 mg/dL (15-57)
[2019-04-20 17:42] LABS: DNA (DS) ANTIBODY 14 IU/mL
== END 2019-04-18 08:01 | disposition home or self-care (01) ==
LOC: LAB.WCP 08:00
PROVIDERS: ATTEND Internal Medicine Rheumatology
DX: M32.9 Systemic lupus erythematosus, unspecified (principal); M25.50 Pain in unspecified joint
CPT/HCPCS: 36415; 81001; 82565; 82570; 84156; 85651; 86140; 86160; 86225

== ENCOUNTER 2019-04-23 08:00 | Outpatient (CLI) | payer MEDICARE, OTHER ==
[2019-04-23 18:56] LABS: BILIRUBIN,URINE NEGATIVE (NEGATIVE); GLUCOSE, URINE (UA) NEGATIVE (NEGATIVE); KETONES,URINE (UA) NEGATIVE (NEGATIVE); LEUKOCYTE ESTERASE, URINE MODERATE (NEGATIVE); NITRITE,URINE NEGATIVE (NEGATIVE); OCCULT BLOOD,URINE LARGE (NEGATIVE); PH,URINE 5.5 PH (5.0-7.5); PROTEIN,URINE TRACE mg/dL (NEGATIVE); UROBILINOGEN,URINE 0.2 (NORMAL) E.U./dL (NORMAL)
[2019-04-23 18:58] LABS: CLARITY,URINE CLEAR (CLEAR)
[2019-04-23 19:48] LABS: BACTERIA,URINE None Seen /HPF (None Seen); RBC,URINE TNTC /HPF (0-5); SQUAMOUS EPITHELIAL CELL,UR NONE SEEN (<= Few)
== END 2019-04-23 23:59 | disposition home or self-care (01) ==
LOC: LAB.WCP 08:00
PROVIDERS: ATTEND Urology
DX: N13.30 Unspecified hydronephrosis (principal)
CPT/HCPCS: 81001; 81003; 87086

== ENCOUNTER 2019-05-02 08:00 | Outpatient (CLI) | payer MEDICARE, OTHER | END 2019-05-02 23:59 | disposition home or self-care (01) | LOC: LAB.WCP 08:00 | PROVIDERS: ATTEND Family Medicine | DX: Z79.01 Long term (current) use of anticoagulants (principal); D68.59 Other primary thrombophilia ==

== ENCOUNTER 2019-05-11 08:00 | Outpatient (CLI) | payer MEDICARE, OTHER | END 2019-05-11 23:59 | disposition home or self-care (01) | LOC: LAB.WCP 08:00 | PROVIDERS: ATTEND Family Medicine | DX: Z79.01 Long term (current) use of anticoagulants (principal); D68.59 Other primary thrombophilia ==

== ENCOUNTER 2019-05-16 08:00 | Outpatient (CLI) | payer MEDICARE, OTHER | END 2019-05-16 23:59 | disposition home or self-care (01) | LOC: LAB.WCP 08:00 | PROVIDERS: ATTEND Family Medicine | DX: Z79.01 Long term (current) use of anticoagulants (principal); D68.59 Other primary thrombophilia ==

== ENCOUNTER 2019-05-23 08:00 | Outpatient (CLI) | payer MEDICARE, OTHER | END 2019-05-23 23:59 | disposition home or self-care (01) | LOC: LAB.WCP 08:00 | PROVIDERS: ATTEND Family Medicine | DX: Z79.01 Long term (current) use of anticoagulants (principal); D68.59 Other primary thrombophilia ==

== ENCOUNTER 2019-06-06 08:00 | Outpatient (CLI) | payer MEDICARE, OTHER ==
[2019-06-06 18:41] LABS: BILIRUBIN,URINE NEGATIVE (NEGATIVE); GLUCOSE, URINE (UA) NEGATIVE (NEGATIVE); KETONES,URINE (UA) NEGATIVE (NEGATIVE); LEUKOCYTE ESTERASE, URINE MODERATE (NEGATIVE); NITRITE,URINE NEGATIVE (NEGATIVE); OCCULT BLOOD,URINE LARGE (NEGATIVE); PH,URINE 5.5 PH (5.0-7.5); PROTEIN,URINE TRACE mg/dL (NEGATIVE); UROBILINOGEN,URINE 0.2 (NORMAL) E.U./dL (NORMAL)
[2019-06-06 19:07] LABS: BACTERIA,URINE None Seen /HPF (None Seen); CLARITY,URINE SL. CLOUDY (CLEAR); CREATININE,URINE 156.1 mg/dL; PROTEIN/CREATININE RATIO,URINE 0.2 (<=0.2); RBC,URINE TNTC /HPF (0-5); SQUAMOUS EPITHELIAL CELL,UR MOD Squamous (<= Few)
[2019-06-06 19:09] LABS: BUN - BLOOD UREA NITROGEN 21 mg/dL (6-20); CREATININE 1.9 mg/dL (0.4-1.0); GFR - MDRD 31 (>89)
[2019-06-06 19:12] LABS: CRP - C-REACTIVE PROTEIN < 1.0 mg/dL (0-1.0)
[2019-06-08 11:14] LABS: COMPLEMENT COMPONENT C3C 104 mg/dL (83-193); COMPLEMENT COMPONENT C4C 11 mg/dL (15-57)
[2019-06-08 16:06] LABS: DNA (DS) ANTIBODY 12 IU/mL
== END 2019-06-06 23:59 | disposition home or self-care (01) ==
LOC: LAB.WCP 08:00
PROVIDERS: ATTEND Internal Medicine Rheumatology
DX: M32.9 Systemic lupus erythematosus, unspecified (principal); N28.9 Disorder of kidney and ureter, unspecified
CPT/HCPCS: 36415; 81001; 82565; 82570; 84156; 84520; 85651; 86140; 86160; 86225

== ENCOUNTER 2019-06-08 08:00 | Outpatient (CLI) | payer MEDICARE, OTHER | END 2019-06-08 23:59 | disposition home or self-care (01) | LOC: LAB.WCP 08:00 | PROVIDERS: ATTEND Family Medicine | DX: Z79.01 Long term (current) use of anticoagulants (principal); D68.59 Other primary thrombophilia ==

== ENCOUNTER 2019-06-22 08:00 | Outpatient (CLI) | payer MEDICARE, OTHER | END 2019-06-22 23:59 | disposition home or self-care (01) | LOC: LAB.WCP 08:00 | PROVIDERS: ATTEND Family Medicine | DX: Z79.01 Long term (current) use of anticoagulants (principal); D68.59 Other primary thrombophilia ==

== ENCOUNTER 2019-07-02 12:58 | Outpatient (CLI) | payer MEDICARE, OTHER ==
[2019-07-02 19:15] LABS: CALCIUM 9.5 mg/dL (8.5-10.3); CREATININE 1.5 mg/dL (0.4-1.0)
== END 2019-07-02 23:59 | disposition home or self-care (01) ==
LOC: LAB.WCP 12:58
PROVIDERS: ATTEND Family Medicine
DX: N17.9 Acute kidney failure, unspecified (principal)
CPT/HCPCS: 36415; 80048

== ENCOUNTER 2019-07-27 08:00 | Outpatient (CLI) | payer MEDICARE, OTHER | END 2019-07-27 23:59 | disposition home or self-care (01) | LOC: LAB.WCP 08:00 | PROVIDERS: ATTEND Family Medicine | DX: Z79.01 Long term (current) use of anticoagulants (principal); D68.59 Other primary thrombophilia ==

== ENCOUNTER 2019-08-24 08:00 | Outpatient (CLI) | payer MEDICARE, OTHER ==
[2019-08-24 20:53] LABS: GLUCOSE, URINE (UA) NEGATIVE (NEGATIVE); KETONES,URINE (UA) TRACE mg/dL (NEGATIVE); LEUKOCYTE ESTERASE, URINE MODERATE (NEGATIVE); NITRITE,URINE NEGATIVE (NEGATIVE); OCCULT BLOOD,URINE LARGE (NEGATIVE); PROTEIN,URINE 100 mg/dL (NEGATIVE); UROBILINOGEN,URINE 0.2 (NORMAL) E.U./dL (NORMAL)
[2019-08-24 20:57] LABS: BILIRUBIN,URINE SMALL (NEGATIVE); CLARITY,URINE CLOUDY (CLEAR); ICTOTEST,URINE POSITIVE
== END 2019-08-24 23:59 | disposition home or self-care (01) ==
LOC: LAB.R 08:00
PROVIDERS: ATTEND Urology
DX: N17.9 Acute kidney failure, unspecified (principal); N18.3 Chronic kidney disease, stage 3 (moderate); Z79.01 Long term (current) use of anticoagulants; D68.59 Other primary thrombophilia
CPT/HCPCS: 81003; 87086

== ENCOUNTER 2019-08-27 08:00 | Outpatient (CLI) | payer MEDICARE, OTHER | END 2019-08-27 23:59 | disposition home or self-care (01) | LOC: LAB.WCP 08:00 | PROVIDERS: ATTEND Physician Assistant Medical | DX: Z86.711 Personal history of pulmonary embolism (principal); Z79.01 Long term (current) use of anticoagulants ==

== ENCOUNTER 2019-09-11 08:00 | Outpatient (CLI) | payer MEDICARE, OTHER | END 2019-09-11 23:59 | disposition home or self-care (01) | LOC: LAB.WCP 08:00 | PROVIDERS: ATTEND Family Medicine | DX: D68.59 Other primary thrombophilia (principal); Z79.01 Long term (current) use of anticoagulants ==

== ENCOUNTER 2019-10-11 08:00 | Outpatient (CLI) | payer MEDICARE, OTHER ==
[2019-10-11 16:29] LABS: BILIRUBIN,URINE NEGATIVE (NEGATIVE); GLUCOSE, URINE (UA) NEGATIVE (NEGATIVE); KETONES,URINE (UA) NEGATIVE (NEGATIVE); LEUKOCYTE ESTERASE, URINE TRACE (NEGATIVE); NITRITE,URINE NEGATIVE (NEGATIVE); OCCULT BLOOD,URINE LARGE (NEGATIVE); PH,URINE 5.5 PH (5.0-7.5); PROTEIN,URINE 100 mg/dL (NEGATIVE); UROBILINOGEN,URINE 0.2 (NORMAL) E.U./dL (NORMAL)
[2019-10-11 16:36] LABS: CLARITY,URINE CLOUDY (CLEAR)
[2019-10-11 16:38] LABS: BACTERIA,URINE None Seen /HPF (None Seen); RBC,URINE TNTC /HPF (0-5); SQUAMOUS EPITHELIAL CELL,UR MOD Squamous (<= Few)
== END 2019-10-11 23:59 | disposition home or self-care (01) ==
LOC: LAB.WCP 08:00
PROVIDERS: ATTEND Family Medicine
DX: N39.0 Urinary tract infection, site not specified (principal)
CPT/HCPCS: 81001; 81003; 87086

== ENCOUNTER 2019-10-14 23:06 | Emergency (ER) | payer MEDICARE, OTHER ==
--- NOTE | 2019-10-14 23:16 | ED Physician Documentation ---
History of Present Illness - Stated complaint Stated Complaint: AB PX/VOMITING - History obtained from History obtained from: Patient (the patient is A 70-year-old female who presents with a two-week history of abdominal pain and nausea and vomiting with a 20 pound weight loss, she comes in on a Tuesday night at approximately 11:15 PM to be evaluated for this. She reports a history of previous right-sided nephrectomy was admitted for acute kidney failure in March 2019 she reports she had some sort of stent placed at an outside hospital and has been doing well since then. She reports a history of atrial fibrillation on Coumadin.) Review of Systems Constitutional: reports: Weight Loss Eyes: reports: Reviewed and negative Ears: reports: Reviewed and negative Nose: reports: Reviewed and negative Throat: reports: Reviewed and negative Cardiac: reports: Reviewed and negative Respiratory: reports: Reviewed and negative GI: reports: Abdominal Pain, Nausea, Vomiting : reports: Reviewed and negative Skin: reports: Reviewed and negative Musculoskeletal: reports: Reviewed and negative Neurologic: reports: Reviewed and negative Psychiatric: reports: Reviewed and negative Endocrine: reports: Reviewed and negative Immunocompromised: reports: Reviewed and negative PD PAST MEDICAL HISTORY - Past Medical History Cardiovascular: Hypertension, High cholesterol, Pulmonary embolism, Atrial fibrillation Respiratory: None Neuro: None Endocrine/Autoimmune: Systemic lupus erythematosus GI: GERD 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 : Renal insuffiency, Kidney stones, Other (status post right nephrectomy) HEENT: None Psych: None Musculoskeletal: None Derm: Herpes zoster (healed-no open lesions.) - Past Surgical History 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 Derm: Skin grafts (RLE) - Present Medications Home Medications: Ambulatory Orders Medication Instructions Recorded Confirmed Atorvastatin Calcium 10 mg PO 2100 04/28/17 10/15/19 Ergocalciferol [Vitamin D2] 50,000 unit PO UD 04/28/17 10/15/19 Folic Acid 1 mg PO DAILY 04/28/17 10/15/19 Hydrocodone/Acetaminophen [Vicodin 1 tab PO TID PRN 04/28/17 10/15/19 Es 7.5-300 mg Tablet] Hydroxychloroquine [Plaquenil] 200 mg PO DAILY 04/28/17 10/15/19 Ibandronate Sodium [Boniva] 150 mg PO UD 04/28/17 10/15/19 Prednisone 5 mg PO DAILY 04/28/17 10/15/19 Warfarin [Coumadin] 2.5 mg PO SUTUWETHSA 04/28/17 10/15/19 diltiaZEM CD [Cardizem Cd] 120 mg PO DAILY 04/28/17 10/15/19 methocarbamoL [Methocarbamol] 500 mg PO BID #30 tablet 04/29/17 10/15/19 Folic Acid/Vit B Complex and C 1 tab PO DAILY 03/19/19 10/15/19 [Korin-Martine Tablet] Tolterodine Tartrate 2 mg PO DAILY 03/19/19 10/15/19 - Allergies Allergies/Adverse Reactions: Allergies Allergy/AdvReac Type Severity Reaction Status Date / Time No Known Drug Allergies Allergy Verified 10/14/19 23:10 - Social History Does the pt smoke?: No Smoking Status: Never smoker Does the pt drink ETOH?: No Does the pt have substance abuse?: No - Immunizations Immunizations are current?: Yes - POLST Patient has POLST: No POLST Status: Full Code PD ED PE NORMAL - Vitals Vital signs reviewed: Yes - General General: Alert and oriented X 3, No acute distress - HEENT HEENT: PERRL - Neck Neck: Supple, no meningeal sign - Cardiac Cardiac: RRR, No murmur - Respiratory Respiratory: Clear bilaterally - Abdomen Abdomen: Normal bowel sounds, Soft, Non tender, Non distended - Derm Derm: Warm and dry - Extremities Extremities: No deformity - Neuro Neuro: Alert and oriented X 3 - Psych Psych: Normal mood, Normal affect Results - Vitals Vitals: Vital Signs - 24 hr 10/14/19 10/14/19 10/15/19 23:10 23:35 00:31 Temperature 36.5 C Heart Rate 97 96 91 Respiratory 16 19 23 Rate Blood Pressure 155/72 H 156/69 H 132/67 H O2 Saturation 100 100 100 10/15/19 10/15/19 00:46 01:30 Temperature 36.5 C Heart Rate 91 88 Respiratory 25 H 14 Rate Blood Pressure 148/64 H 130/70 O2 Saturation 100 99 Oxygen O2 Source Room air - EKG (time done) 23:32 Rate: Other (no stemi) - Labs Labs: Laboratory Tests 10/14/19 10/15/19 10/15/19 23:22 00:47 00:47 WBC 6.9 RBC 4.28 Hgb 11.9 L Hct 37.2 MCV 86.9 MCH 27.8 MCHC 32.0 RDW 13.8 Plt Count 324 MPV 9.3 Neut # (Auto) 5.0 Lymph # (Auto) 1.1 L [place] # (Auto) 0.8 Eos # (Auto) 0.0 Baso # (Auto) 0.0 Absolute Nucleated RBC 0.00 Nucleated RBC % 0.0 PT INR APTT Sodium 136 Potassium 4.1 Chloride 104 Carbon Dioxide 22 Anion Gap 10.0 BUN 19 Creatinine 1.4 H Estimated GFR (MDRD) 45 L Glucose 85 Calcium 9.4 Total Bilirubin 0.9 AST 29 ALT 23 Alkaline Phosphatase 81 Troponin I High Sens Total Protein 8.1 Albumin 4.0 Globulin 4.1 Albumin/Globulin Ratio 1.0 Lipase 41 Urine Color YELLOW Urine Clarity CLEAR Urine pH 5.5 Ur Specific [place] >=1.030 H Urine Protein 100 H Urine Glucose (UA) NEGATIVE Urine Ketones NEGATIVE Urine Occult Blood LARGE H Urine Nitrite NEGATIVE Urine Bilirubin NEGATIVE Urine Urobilinogen 0.2 (NORMAL) Ur Leukocyte Esterase SMALL H Urine RBC 6-10 H Urine WBC 0-3 Ur Squamous Epith Cells MANY Squamous H Urine Bacteria Few Ur Microscopic Review INDICATED Urine Culture Comments NOT INDICATED 10/15/19 10/15/19 00:47 00:47 WBC RBC Hgb Hct MCV MCH MCHC RDW Plt Count MPV Neut # (Auto) Lymph # (Auto) [place] # (Auto) Eos # (Auto) Baso # (Auto) Absolute Nucleated RBC Nucleated RBC % PT 28.6 H INR 2.7 H APTT 38.5 H Sodium Potassium Chloride Carbon Dioxide Anion Gap BUN Creatinine Estimated GFR (MDRD) Glucose Calcium Total Bilirubin AST ALT Alkaline Phosphatase Troponin I High Sens 21.1 H* Total Protein Albumin Globulin Albumin/Globulin Ratio Lipase Urine Color Urine Clarity Urine pH Ur Specific [place] Urine Protein Urine Glucose (UA) Urine Ketones Urine Occult Blood Urine Nitrite Urine Bilirubin Urine Urobilinogen Ur Leukocyte Esterase Urine RBC Urine WBC Ur Squamous Epith Cells Urine Bacteria Ur Microscopic Review Urine Culture Comments PD MEDICAL DECISION MAKING - ED course Complexity details: reviewed old records, reviewed results, re-evaluated patient (01:17 pain free, tolerated po challenge, will f/u today w pcp), considered differential (ARF, Supratherapeutic INR, anemia, GI bleed, uti), d/w patient, other (patient updated on results. she is asymptomatic, denies any chest pain or shortness of breath, her high sensitivity troponin came back minimally elevated, no previous value for comparison, i did offer to admit this patient for observation however she states she is pain free, ekg shows no signs of ischemia or infarction, she has medical decision making capability and capacity and will follow up with her pcp today. ) Departure - Departure Disposition: 01 Home, Self Care Clinical Impression: Weakness Condition: Stable Instructions: ED Weakness [facility] Follow-Up: Jose Martin MD [Primary Care Provider] - 10/15/19 Discharge Date/Time: 10/15/19 01:30
[2019-10-14] MEDS ORDERED: SODIUM CHLORIDE 0.9% 1,000 ML IV ONE (23:21)
[2019-10-14] MEDS ORDERED: ONDANSETRON 4 MG/2 ML VIAL IVP STA (23:21)
[2019-10-14] MEDS ORDERED: IOVERSOL 320 100 ML VIAL IVP ONE (23:26)
[2019-10-14 23:29] LABS: GLUCOSE, URINE (UA) NEGATIVE (NEGATIVE); KETONES,URINE (UA) NEGATIVE (NEGATIVE); LEUKOCYTE ESTERASE, URINE SMALL (NEGATIVE); NITRITE,URINE NEGATIVE (NEGATIVE); OCCULT BLOOD,URINE LARGE (NEGATIVE); PH,URINE 5.5 PH (5.0-7.5); PROTEIN,URINE 100 mg/dL (NEGATIVE); UROBILINOGEN,URINE 0.2 (NORMAL) E.U./dL (NORMAL)
[2019-10-14 23:31] LABS: BILIRUBIN,URINE NEGATIVE (NEGATIVE); CLARITY,URINE CLEAR (CLEAR); ICTOTEST,URINE NEGATIVE
[2019-10-14 23:36] LABS: BACTERIA,URINE Few /HPF (None Seen); SQUAMOUS EPITHELIAL CELL,UR MANY Squamous (<= Few)
[2019-10-15] MEDS ORDERED: ONDANSETRON ODT 4 MG TABLET TL STA (00:26)
--- NOTE | 2019-10-15 00:33 | XRAY Report ---
Reason: weakness Procedure Date: 10/15/2019 Accession Number: [id number] / [id number] Procedure: XR - Chest 1 View X-Ray CPT Code: 28568 Final Report FULL RESULT: EXAM: CHEST RADIOGRAPHY EXAM DATE: 10/14/2019 11:36 PM. CLINICAL HISTORY: Weakness and abdominal pain. Syncope. COMPARISON: None. TECHNIQUE: 1 view. FINDINGS: Lungs/Pleura: No alveolar consolidation or pleural effusion seen. No pneumothorax. Mediastinum: Within exam limitations, the cardiomediastinal contour is normal. Aortic atherosclerosis. Other: There appears to be a left ureteral stent. IMPRESSION: 1. No acute abnormality seen in the chest. [facility]
--- NOTE | 2019-10-15 00:55 | CT Report ---
Reason: abd pain Procedure Date: 10/15/2019 Accession Number: [id number] / [id number] Procedure: CT - Abdomen/Pelvis WO CPT Code: Final Report FULL RESULT: EXAM: CT ABDOMEN AND PELVIS (CT KUB) EXAM DATE: 10/14/2019 11:57 PM. CLINICAL HISTORY: Abd pain. COMPARISONS: None. TECHNIQUE: Routine axial helical CT imaging was performed through the abdomen and pelvis without IV contrast. Reconstructions: Coronal and sagittal. In accordance with CT protocol optimization, one or more of the following dose reduction techniques were utilized for this exam: automated exposure control, adjustment of mA and/or KV based on patient size, or use of iterative reconstructive technique. FINDINGS: Lung Bases: Unremarkable. Right Kidney/Ureter: There are multiple globular calcifications in the right renal bed. There is no right kidney. Left Kidney/Ureter: There is a stent in the left ureter. No hydronephrosis. Other Solid Organs: The liver, spleen, pancreas, and the adrenal glands are unremarkable. Gallbladder/Bile Ducts: Unremarkable. Peritoneal Cavity: There is no distention of the small bowel nor the colon. No definite inflammatory changes. Pelvic Organs: The uterus is enlarged and there are multiple calcified uterine fibroids. No adnexal masses. There is a small amount of presacral soft tissue thickening. The urinary bladder is grossly unremarkable. Vasculature: Unremarkable. Other: None. IMPRESSION: 1. Left-sided ureteral stent. No hydronephrosis. 2. Multiple calcified uterine fibroids. 3. Presacral soft tissue thickening of uncertain etiology. [facility]
[2019-10-15 01:03] LABS: BASOPHILS % (AUTO) 0.4 %; HGB - HEMOGLOBIN 11.9 g/dL (12.0-16.0); LYMPHOCYTES # (AUTO) 1.1 10^3/uL (1.5-3.5); LYMPHOCYTES % (AUTO) 15.6 %; MEAN CORPUSCULAR HEMOGLOBIN 27.8 pg (27.0-31.0); MEAN CORPUSCULAR VOLUME 86.9 fL (81.0-99.0); MEAN PLATELET VOLUME 9.3 fL (7.9-10.8); MONOCYTES # (AUTO) 0.8 10^3/uL (0.0-1.0); MONOCYTES % (AUTO) 11.1 %; PLT - PLATELET COUNT 324 10^3/uL (130-450); RED BLOOD COUNT 4.28 10^6/uL (4.20-5.40); RED CELL DISTRIBUTION WIDTH 13.8 % (12.0-15.0); WHITE BLOOD COUNT 6.9 x10^3/uL (4.8-10.8)
[2019-10-15 01:06] LABS: INR 2.7 (0.8-1.2); PT - PROTHROMBIN TIME 28.6 secs (9.9-12.6)
[2019-10-15 01:14] LABS: PARTIAL THROMBOPLASTIN TIME 38.5 secs (24.9-33.3)
[2019-10-15 01:15] LABS: BILIRUBIN,TOTAL 0.9 mg/dL (0.2-1.0); CALCIUM 9.4 mg/dL (8.5-10.3); CREATININE 1.4 mg/dL (0.4-1.0); TOTAL PROTEIN 8.1 g/dL (6.7-8.2)
[2019-10-15 01:45] VITALS: BP 130/70
== END 2019-10-15 01:30 | disposition home or self-care (01) ==
LOC: ED 23:06
DX: R53.1 Weakness (principal); I10 Essential (primary) hypertension
CPT/HCPCS: 36415; 71045; 74176; 80053; 81001; 81003; 83690; 84484; 85025; 85610; 85730; 87086; 93005; 96374; 99285

== ENCOUNTER 2019-11-08 08:00 | Outpatient (CLI) | payer MEDICARE, OTHER | END 2019-11-08 23:59 | disposition home or self-care (01) | LOC: LAB.WCP 08:00 | PROVIDERS: ATTEND Family Medicine | DX: Z86.711 Personal history of pulmonary embolism (principal); Z79.01 Long term (current) use of anticoagulants ==